=== PATIENT | male | born 1950 | race Caucasian/White ===

== ENCOUNTER 2021-01-08 20:05 | Emergency (ER) | payer MEDICARE, SELFPAY ==
[2021-01-08 20:07] VITALS: BP 147/76; PULSE 68; RESP 16; TEMP 36.4; O2SAT 99; BMI 24.3
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
== END 2021-01-08 21:00 | disposition home or self-care (01) ==
LOC: ED 20:59
PROVIDERS: Emergency Provider Emergency Medicine; PCP Internal Medicine
DX: S60.212A Contusion of left wrist, initial encounter (principal); I10 Essential (primary) hypertension; E03.9 Hypothyroidism, unspecified; Z79.899 Other long term (current) drug therapy; V89.2XXA Person injured in unspecified motor-vehicle accident, traffic, initial encounter
CPT/HCPCS: 73110; 99282